=== PATIENT | male | born 1970 | race Hispanic/Latino ===

== ENCOUNTER 2018-05-13 09:21 | Emergency (ER) | payer BC ==
--- NOTE | 2018-05-13 10:39 | RAD REPORT ---
EXAM DESCRIPTION: RAD - Foot Left 3 View - 05/13/2018 9:50 am CLINICAL HISTORY: Pain;Swelling COMPARISON: No comparisons FINDINGS: No acute fracture or subluxation seen. Small calcaneal spur present.
--- NOTE | 2018-05-13 10:48 | ER ---
Nurse's Notes [facility] Name: Trenton Mims Age: 47 yrs Sex: Male : 1970 Arrival Date: 05/13/2018 Time: 09:24 Bed 17 Private MD: Santi Roy Diagnosis: Other sprain of left foot Presentation: 05/13 09:30 Presenting complaint: Patient states: was playing basketball in sandals and rolled left em ankle, pt ambulated to room, swelling noted to left ankle, abrasion to right knee and right big toe. 09:30 Method Of Arrival: Ambulatory em 09:30 Transition of care: patient was not received from another setting of care. Onset of em symptoms was May 12, 2018. Risk Assessment: Do you want to hurt yourself or someone else? Patient reports no desire to harm self or others. Initial Sepsis Screen: Does the patient meet any 2 criteria? No. Patient's initial sepsis screen is negative. Does the patient have a suspected source of infection? Yes: Skin breakdown/wound. Care prior to arrival: None. 09:44 Acuity: SARA 4 iw Triage Assessment: 09:30 General: Appears in no apparent distress. comfortable, Behavior is calm, cooperative. em Pain: Complains of pain in left lateral ankle. Musculoskeletal: Range of motion: limited in left ankle. Historical: - Allergies: 09:30 No Known Allergies; em - Home Meds: :30 None [Active]; em - PMHx: 09:30 None; em - PSHx: 09:30 None; em - Immunization history:: Adult Immunizations up to date. - Social history:: Smoking status: Patient/guardian denies using tobacco. - Ebola Screening: : Patient negative for fever greater than or equal to 101.5 degrees Fahrenheit, and additional compatible Ebola Virus Disease symptoms Patient denies exposure to infectious person Patient denies travel to an Ebola-affected area in the 21 days before illness onset No symptoms or risks identified at this time. - Family history:: not pertinent. - Hospitalizations: : No recent hospitalization is reported. Screenin:30 Abuse screen: Denies threats or abuse. Nutritional screening: No deficits noted. em Tuberculosis screening: No symptoms or risk factors identified. Fall Risk None identified. Assessment: 09:30 General: Appears in no apparent distress. comfortable, Behavior is calm, cooperative. em Pain: Complains of pain in left lateral ankle Pain currently is 7 out of 10 on a pain scale. Neuro: Level of Consciousness is awake, alert, obeys commands, Oriented to person, place, time, situation. Cardiovascular: Capillary refill < 3 seconds Patient's skin is warm and dry. Pulses are all present. Respiratory: Airway is patent Respiratory effort is even, unlabored, Respiratory pattern is regular, symmetrical. GI: Abdomen is flat. Derm: Skin is intact, is healthy with good turgor, Skin is pink, warm \T\ dry. Musculoskeletal: Range of motion: limited in left ankle Swelling present in left lateral ankle. Injury Description: Abrasion sustained to Right first toenail and right knee. 10:30 Reassessment: Patient appears in no apparent distress at this time. Patient and/or em family updated on plan of care and expected duration. Pain level reassessed. Patient is alert, oriented x 3, equal unlabored respirations, skin warm/dry/pink. resting comfortably in bed with eyes closed. Vital Signs: 09:30 BP 144 / 103; Pulse 77; Resp 18; Temp 97.8(TE); Pulse Ox 96% on R/A; Weight 113.4 kg; em Height 5 ft. 7 in. (170.18 cm); Pain 7/10; 10:15 BP 129 / 73; Pulse 69; Resp 16; Pulse Ox 96% on R/A; em 09:30 Body Mass Index 39.16 (113.40 kg, 170.18 cm) em ED Course: 09:24 Patient arrived in ED. rg4 09:24 Santi Roy DO is Private Physician. rg4 09:25 Macario Evangelista MD is Attending Physician. rn 09:30 Arm band placed on. em 09:30 Patient has correct armband on for positive identification. Bed in low position. Call em light in reach. Pulse ox on. NIBP on. 09:37 Helder Bobo LVN is Primary Nurse. em 09:44 Triage completed. iw 09:50 XRAY Foot LEFT 3 View In Process Unspecified. EDMS 11:31 No provider procedures requiring assistance completed. Patient did not have IV access em during this emergency room visit. Administered Medications: No medications were administered Outcome: 10:47 Discharge ordered by . rn 11:31 Discharged to home ambulatory, with family. em 11:31 Condition: good 11:31 Discharge instructions given to patient, family, Instructed on discharge instructions, follow up and referral plans. Demonstrated understanding of instructions, follow-up care. 11:33 Patient left the ED. em Signatures: Dispatcher [employer] EDeHlder Alvarez, CLIENT STRATEGIST CLIENT STRATEGIST Joi Dudley RN RN iw Nieto, Roman, MD MD rn Garcia, Rubi rg4
--- NOTE | 2018-05-13 10:48 | EDPHYS ---
Physician Documentation [facility] Name: Trenton Mims Age: 47 yrs Sex: Male : 1970 Arrival Date: 05/13/2018 Time: 09:24 Bed 17 Private MD: Santi Roy ED Physician Macario Evangelista HPI: 05/13 10:18 This 47 yrs old Male presents to ER via Ambulatory with complaints of Ankle rn Injury. 10:18 The patient presents with an injury, pain. The complaints affect the left foot. Onset: rn The symptoms/episode began/occurred yesterday. Modifying factors: The symptoms are alleviated by nothing, the symptoms are aggravated by weight bearing, movement, wearing shoes. Severity of symptoms: At their worst the symptoms were moderate, in the emergency department the symptoms have improved. The patient has not experienced similar symptoms in the past. Reports playing basketball yesterday with son in sandals, pivoted, + pain to left lateral foot, swelling has improved, is ambulatory. NO ankle pain, no knee pain.. Historical: - Allergies: 09:30 No Known Allergies; em - Home Meds: : None [Active]; em - PMHx: :30 None; em - PSHx: 09:30 None; em - Immunization history:: Adult Immunizations up to date. - Social history:: Smoking status: Patient/guardian denies using tobacco. - Ebola Screening: : Patient negative for fever greater than or equal to 101.5 degrees Fahrenheit, and additional compatible Ebola Virus Disease symptoms Patient denies exposure to infectious person Patient denies travel to an Ebola-affected area in the 21 days before illness onset No symptoms or risks identified at this time. - Family history:: not pertinent. - Hospitalizations: : No recent hospitalization is reported. ROS: 10:18 Constitutional: Negative for fever, chills, and weight loss, MS/Extremity: + left foot rn pain and injury Neuro: Negative for weakness/numbness/tingling Exam: 10:18 Constitutional: This is a well developed, well nourished patient who is awake, alert, rn and in no acute distress. MS/ Extremity: Pulses equal, no cyanosis. Neurovascular intact. + mild tenderness and swelling on dorsum of left foot along lateral edge, no open wounds of left foot, no knee pain or tib/fib tenderness. Vital Signs: 09:30 BP 144 / 103; Pulse 77; Resp 18; Temp 97.8(TE); Pulse Ox 96% on R/A; Weight 113.4 kg; em Height 5 ft. 7 in. (170.18 cm); Pain 7/10; 10:15 BP 129 / 73; Pulse 69; Resp 16; Pulse Ox 96% on R/A; em 09:30 Body Mass Index 39.16 (113.40 kg, 170.18 cm) em MDM: 09:25 Patient medically screened. rn 10:46 Differential diagnosis: fracture, sprain. Data reviewed: vital signs, nurses notes, rn radiologic studies, plain films, and as a result, I will discharge patient. Counseling: I had a detailed discussion with the patient and/or guardian regarding: the historical points, exam findings, and any diagnostic results supporting the discharge/admit diagnosis, radiology results, the need for outpatient follow up, to return to the emergency department if symptoms worsen or persist or if there are any questions or concerns that arise at home. Special discussion: I discussed with the patient/guardian in detail that at this point there is no indication for admission to the hospital. It is understood, however, that if the symptoms persist or worsen the patient needs to return immediately for re-evaluation. 05/13 09:32 Order name: BRAULIOAY Foot LEFT 3 View; Complete Time: 10:46 rn Administered Medications: No medications were administered Disposition: 05/13/18 10:47 Discharged to Home. Impression: Other sprain of left foot. - Condition is Stable. - Discharge Instructions: Foot Sprain. - Work release form, Medication Reconciliation Form, Thank You Letter, Antibiotic Education, Prescription Opioid Use form. - Follow up: Private Physician; When: As needed; Reason: Recheck today's complaints, Re-evaluation by your physician. - Problem is new. - Symptoms have improved. Signatures: Dispatcher [employer] Helder Allan LVN LVN em Nieto, Roman, MD MD computer science intern: (The following items were deleted from the chart) 11:33 10:47 05/13/2018 10:47 Discharged to Home. Impression: Other sprain of left foot. em Condition is Stable. Forms are Medication Reconciliation Form, Thank You Letter, Antibiotic Education, Prescription Opioid Use. Follow up: Private Physician; When: As needed; Reason: Recheck today's complaints, Re-evaluation by your physician. Problem is new. Symptoms have improved. rn
== END 2018-05-13 11:33 | disposition home or self-care (01) ==
LOC: ER 09:21
DX: S93.692A Other sprain of left foot, initial encounter (principal); X58.XXXA Exposure to other specified factors, initial encounter; Y93.67 Activity, basketball; Y92.9 Unspecified place or not applicable
CPT/HCPCS: 99283